=== PATIENT | female | born 1965 | race American Indian/Alaskan Native ===

== ENCOUNTER 2019-06-22 09:48 | Outpatient (CLI) | payer BC ==
--- NOTE | 2019-06-22 10:36 | Mammography Report ---
DIGITAL SCREENING MAMMOGRAM WITH CAD, 06/22/2019 INDICATION: Routine screening mammography. TECHNIQUE: Digital bilateral 2D mammography was obtained in the craniocaudal and mediolateral obliq ue projections. This examination was interpreted with the benefit of Computer-Aided Detection analysi s. COMPARISON: 06/17/2018 FINDINGS: Breast Density: The breasts are heterogeneously dense, which may obscure small masses. There is no evidence of dominant mass, suspicious calcifications or architectural distortion in eithe r breast. IMPRESSION: No mammographic evidence of malignancy. Follow up recommendation: Routine yearly BI-RADS Category 1: Negative. A "normal" or negative report should not discourage follow up or biopsy of a clinically significant f inding. A written summary of these findings will be mailed to the patient. The patient will be entered into a mammography reporting system which will generate a reminder letter for the patient's next appointmen t at the appropriate interval. The [employer] recommends yearly mammograms starting at age 40 and continuing as l sarahi as a woman is in good health. Breast MRI is recommended for women with an approximate 20-25% or greater lifetime risk of breast cancer, including women with a strong family history of breast or ova adeline cancer or who have been treated for Hodgkin's disease. Signer Name: Sergio Rivero MD Signed: 06/22/2019 10:32 AM Workstation Name: [id number]
== END 2019-06-22 09:49 | disposition home or self-care (01) ==
LOC: SPVWC 09:48
PROVIDERS: ATTEND Surgery
DX: Z12.31 Encounter for screening mammogram for malignant neoplasm of breast (principal)
CPT/HCPCS: 77067

== ENCOUNTER 2020-06-27 08:23 | Outpatient (CLI) | payer BC ==
--- NOTE | 2020-06-27 18:10 | Mammography Report ---
DIGITAL SCREENING MAMMOGRAM WITH CAD, 06/27/2020 INDICATION: Routine screening mammography. TECHNIQUE: Digital bilateral 2D mammography was obtained in the craniocaudal and mediolateral obliq ue projections. This examination was interpreted with the benefit of Computer-Aided Detection analysi s. COMPARISON: Prior mammograms 06/22/2019 and 06/17/2018 FINDINGS: Breast Density: There are scattered areas of fibroglandular density. There is no evidence of dominant mass, suspicious calcifications or architectural distortion in eithe r breast. There has been no significant change compared with the prior examinations. IMPRESSION: Follow up recommendation: Routine yearly BI-RADS Category 1: Negative. A "normal" or negative report should not discourage follow up or biopsy of a clinically significant f inding. A written summary of these findings will be mailed to the patient. The patient will be entered into a mammography reporting system which will generate a reminder letter for the patient's next appointmen t at the appropriate interval. The [employer] recommends yearly mammograms starting at age 40 and continuing as l sarahi as a woman is in good health. Breast MRI is recommended for women with an approximate 20-25% or greater lifetime risk of breast cancer, including women with a strong family history of breast or ova adeline cancer or who have been treated for Hodgkin's disease. Signer Name: Vijaya Matias MD Signed: 06/27/2020 6:05 PM Workstation Name: [email or web address]
== END 2020-06-27 08:24 | disposition home or self-care (01) ==
LOC: SPVWC 08:23
PROVIDERS: ATTEND Surgery
DX: Z12.31 Encounter for screening mammogram for malignant neoplasm of breast (principal); N64.89 Other specified disorders of breast
CPT/HCPCS: 77067

== ENCOUNTER 2020-07-25 15:54 | Outpatient (CLI) | payer BC ==
--- NOTE | 2020-07-25 17:26 | Ultrasound Report ---
ULTRASOUND BREAST BILATERAL COMPLETE, 07/25/2020 CLINICAL INFORMATION / INDICATION: DIFFUSE CYSTIC MASTOPATHY OF SERGEY BREASTS. TECHNIQUE: Complete sonographic evaluation of all 4 quadrants and retroareolar region was performed. COMPARISON: Bilateral mammography 06/27/20. FINDINGS: There is an 11 mm oval solid nodule in the left subareolar region. The lesion has mildly irregular ma rgins and demonstrates internal vascularity on Doppler exam. The lesion is parallel without posterior features. No mammographic correlate is seen. There are benign-appearing lymph nodes in each axilla. No other abnormality is seen. IMPRESSION: 11 mm solid nodule in the left subareolar region is moderately suspicious and biopsy is r ecommended. Follow up recommendation: Surgical consult BI-RADS Category 4: Suspicious for Malignancy. A normal or "negative" report should not preclude biopsy or follow-up of a clinically suspicious find ing. Signer Name: Asif Thomas MD Signed: 07/25/2020 5:21 PM Workstation Name: [id number]
== END 2020-07-25 15:55 | disposition home or self-care (01) ==
LOC: SPVWC 15:54
PROVIDERS: ATTEND Surgery
DX: N60.12 Diffuse cystic mastopathy of left breast (principal); N60.11 Diffuse cystic mastopathy of right breast

== ENCOUNTER 2020-08-15 07:58 | Outpatient (CLI) | payer BC ==
--- NOTE | 2020-08-15 12:15 | Ultrasound Report ---
ULTRASOUND-GUIDED LEFT BREAST VACUUM-ASSISTED BIOPSY INDICATION: Left breast nodule COMPARISON: Left breast ultrasound 07/25/2020 CONSENT: Procedure was discussed at length in advance with the patient. Possible risks and benefits w ere discussed including the possibility of bleeding. Postbiopsy care was discussed. Opportunity for q uestions was provided. Patient is not on anticoagulant therapy and reports no pertinent allergies. PROCEDURE: Timeout was performed. The area of concern in the retroareolar 2:00 position was targeted sonographically. Using aseptic technique and under local anesthesia, with real-time sonographic johan nce, the area of interest was biopsied. Multiple specimens were obtained with an Achieve 14-gauge bio psy device and sent to pathology for analysis. A metallic clip was placed at the end of the procedure . Site was secured and the patient was sent for post biopsy mammogram. Patient tolerated the procedur e well and left the department in good condition. IMPRESSION: Successful ultrasound-guided left breast biopsy Signer Name: Hoang Sotelo MD Signed: 08/15/2020 12:10 PM Workstation Name: [id number]
--- NOTE | 2020-08-15 12:24 | Mammography Report ---
DIGITAL DIAGNOSTIC MAMMOGRAM WITH CAD CONVENTIONAL, 08/15/2020 CLINICAL INFORMATION / INDICATION: Post left ultrasound guided biopsy TECHNIQUE: Digital left mammographic imaging was performed. This examination was interpreted with the benefit of Computer-aided Detection analysis. COMPARISON: Screening mammogram 06/22/2019 FINDINGS: Breast Density: The breasts are heterogeneously dense, which may obscure small masses. Biopsy clip is seen in the anterior central lateral left breast at the expected location of the sonog raphic abnormality. IMPRESSION: Appropriate clip placement Follow up recommendation: Per biopsy results Post biopsy imaging. A "normal" or negative report should not discourage follow up or biopsy of a clinically significant f inding. A written summary of these findings will be mailed to the patient. The patient will be entered into a mammography reporting system which will generate a reminder letter for the patient's next appointmen t at the appropriate interval. According to the [employer], yearly mammograms are recommended starting at age 40 and continuing as long as a woman is in good health. Breast MRI is recommended for women with an lois roximately 20-25% or greater lifetime risk of breast cancer, including women with a strong family his tory of breast or ovarian cancer and women who have been treated for Hodgkin's disease. Signer Name: Hoang Sotelo MD Signed: 08/15/2020 12:19 PM Workstation Name: [id number]
== END 2020-08-15 07:59 | disposition home or self-care (01) ==
LOC: SPVWC 07:58
PROVIDERS: ATTEND Surgery
DX: N63.21 Unspecified lump in the left breast, upper outer quadrant (principal); R92.8 Other abnormal and inconclusive findings on diagnostic imaging of breast
CPT/HCPCS: 88305

== ENCOUNTER 2020-10-11 07:49 | Day surgery (SDC) | payer BC ==
[2020-10-05 15:02] LABS: Hematocrit 31.9 % (30.3-42.9); Hemoglobin 11.6 gm/dl (10.1-14.3); Mean Corpuscular HGB Conc 36 % (30-34); Mean Corpuscular Volume 99 fl (79-97); Platelet Count 256 K/mm3 (140-440); Red Blood Count 3.23 M/mm3 (3.65-5.03); Red Cell Distribution Width 12.1 % (13.2-15.2)
[2020-10-05 15:19] LABS: Calcium 9.7 mg/dL (8.4-10.2)
[~2020-10-11 07:49] MED LIST: ACETAMINOPHEN 500 MG TAB PO SCH; CELECOXIB 200 MG CAP PO NR; GABAPENTIN 300 MG CAP PO NR; LACTATED RINGERS 1,000 ML IV SCH; MIDAZOLAM 2 MG/2 ML INJ IV NR; ceFAZolin/Water 2 GM/20 ML 2 GM/20 ML SYRINGE IV NR
[2020-10-11] MEDS ORDERED: LIDOCAINE (1%) 10 MG/1 ML VIAL 20 ML MDV ONE ×2 (08:12→10:17)
--- NOTE | 2020-10-11 08:49 | Anesthesia Consultation ---
Anesthesia Consult and Med Hx Date of service: 10/11/20 - Airway Anesthetic Teeth Evaluation: Good ROM Head & Neck: Adequate Mental/Hyoid Distance: Adequate Mallampati Class: Class II Intubation Access Assessment: Probably Good - Pulmonary Exam CTA: Yes - Cardiac Exam Cardiac Exam: RRR - Pre-Operative Health Status ASA Pre-Surgery Classification: ASA2 Proposed Anesthetic Plan: General - Pulmonary Hx Smoking: No Hx Respiratory Symptoms: No - Cardiovascular System Hx Hypertension: Yes (took amlodipine this morning) Hx Heart Attack/AMI: No - Central Nervous System CVA: No Hx Psychiatric Problems: Yes (anxiety) - Endocrine Hx Renal Disease: No Hx Liver Disease: No Hx Insulin Dependent Diabetes: No Hx Non-Insulin Dependent Diabetes: No Hx Thyroid Disease: No - Hematic Hx Anemia: Yes - Other Systems Hx Obesity: No - Additional Comments Anesthesia Medical History Comments: No hx anesthetic complications.
--- NOTE | 2020-10-11 08:59 | Anesthesia Day of Surgery ---
Anesthesia Day of Surgery - Day of Surgery Patient Examined: Yes Patient H&P Reviewed: Yes Patient is NPO: Yes
[2020-10-11] MEDS ORDERED: HYDROmorphone 1 MG/1 ML INJ IV PRN (09:00)
[2020-10-11] MEDS ORDERED: ONDANSETRON 4 MG/2 ML INJ IV PRN (09:00)
[2020-10-11] MEDS ORDERED: BUPIVACAINE/PF (0.25%) 2.5 MG/ML 10 ML VIAL INFILTRATI ONE ×2 (10:17→11:07)
[2020-10-11] MEDS ORDERED: fentaNYL 100 MCG/2 ML INJ ONE ×2 (10:23→10:45)
[2020-10-11] MEDS ORDERED: dexAMETHasone 20 MG/5 ML VIAL ONE (10:23)
[2020-10-11] MEDS ORDERED: PHENYLEPHRINE/NS 1,000 MCG/10 ML SYRINGE (OR USE) IV ONE (10:23)
[2020-10-11] MEDS ORDERED: ONDANSETRON 4 MG/2 ML INJ ONE (10:23)
[2020-10-11] MEDS ORDERED: SUCCINYLCHOLINE CHLORIDE 200 MG/10 ML INJ MDV ONE (10:23)
[2020-10-11] MEDS ORDERED: LIDOCAINE MPF (2%) 20 MG/1 ML VIAL 5 ML ONE (10:23)
[2020-10-11] MEDS ORDERED: NEOSTIGMINE 10MG/10 ML INJ MDV ONE (10:23)
[2020-10-11] MEDS ORDERED: GLYCOPYRROLATE 0.4 MG/2 ML INJ ONE (10:23)
[2020-10-11] MEDS ORDERED: propofoL 200 MG/20 ML VIAL IV ONE (10:24)
[2020-10-11] MEDS ORDERED: ePHEDrine SULFATE 50 MG/1 ML INJ ONE (10:47)
--- NOTE | 2020-10-11 10:58 | Mammography Report ---
MAMMOGRAPHIC GUIDED LEFT BREAST NEEDLE LOCALIZATION, 10/11/2020 CLINICAL INFORMATION / INDICATION: LT BREAST MASS. COMPARISON: 08/15/2020 PROCEDURE: Risks, benefits and indications to the procedure were discussed with the patient. The patient agreed to proceed with both verbal and written consent. A timeout procedure was performed with 2 patient shannon ntifiers. The breast was prepped with betadine in the usual sterile fashion. Approximately 5 cc of Lidocaine 1% was used for local anesthesia. Under direct digital mammographic guidance, a localization wire was p laced in satisfactory position with distal tip traversing the targeted lesion. Post-biopsy mammogram confirms satisfactory positioning of the localization wire. The wire was secured to the skin with a s terile dressing. The patient tolerated procedure without difficulty. No complications were encountered. IMPRESSION: 1. Satisfactory mammographic guided wire localization of the left breast. Signer Name: Brady Woodward Jr, MD Signed: 10/11/2020 10:53 AM Workstation Name: [id number]
[2020-10-11] MEDS ORDERED: WATER FOR IRRIG STERILE 1,500 ML BOTTLE IR ONE (11:06)
[2020-10-11] MEDS ORDERED: LIDOCAINE (1%) 10 MG/1 ML VIAL 20 ML MDV INFILTRATI ONE (11:07)
[2020-10-11] MEDS ORDERED: BACITRACIN ZINC OINT 28.4 GM TP ONE ×2 (11:18→11:29)
[2020-10-11] MEDS ORDERED: NITROGLYCERIN 2% OINT 1 GM TP ONE ×2 (11:20→11:31)
[2020-10-11] MEDS ORDERED: TRIAMCINOLONE 40 MG/1 ML INJ ONE (11:25)
[2020-10-11] MEDS ORDERED: TRIAMCINOLONE 40 MG/1 ML INJ IM ONE (11:30)
--- NOTE | 2020-10-11 12:04 | Operative Report ---
Operative Report Operative Report: October 11, 2020 Preoperative diagnosis: Left breast retroareolar mass/papilloma of the upper outer quadrant Postoperative diagnosis: Same Procedure: Left breast mass/papilloma needle localization excisional biopsy Surgeon: Geraldine Hernandez MD Director Medicaid: Carolina Romeo MD Anesthesia: General Findings: Left wire and clip present within radiograph specimen Complications: None EBL: Minimal (less than 25 cc) Disposition: PACU in good condition Indications for operative procedure: This is a 55 year old lady with recent abnormal left breast ultrasound findings of a probable intraductal mass of upper outer quadrant retroareolar of 11 mm. Left breast ultrasound guided needle core biopsy performed with findings of a papilloma and recommendations are to proceed with left breast mass excisional biopsy to rule out malignancy given breast cancer risk association. She wished to proceed with the above procedure. Procedure in detail: The patient was taken to radiology for wire placement for localization known area of concern. Patient was then taken to the operating room. Gen. anesthesia was administered. Left breast and axilla were prepped and draped in the normal sterile operative fashion. The wire was identified around 3:00 position SA. Timeout was performed. Ultrasound used as well to localize area of excision. Attention was then taken towards the left breast. A 3:00 periareolar breast incision was made with a 15 blade knife and dissection taken down to subcutaneous tissues. First began raising of the anterior flap with removal of the wire from the skin with the mass present immediateily posterior to the nipple with careful dissection performed to ensure vascuarlity, dissection was taken down posteriorly past the wire, followed by raising of the superior flap, inferior flap and medial flap with all flaps taken down posteriorly past the wire. The breast area of concern was appropriately removed posteriorly with the aid of the Bovie cautery. The wire was not encountered. Specimen was marked and then sent to pathology and radiology; radiograph specimen with wire and clip present. Breast cavity was irrigated and hemostasis was obtained. Breast cavity was anesthesized wtih 1% lidocained mixed with quarter percent marcaine withou epinephrine. The posterior deep breast tissues were approximated and closed using interrupted 3-0 Vicryl. The subcutaneous tissues were approximated and closed using interrupted 3-0 Vicryl followed by closing of the skin with a running 4-0 Monocryl and skin affix. The patient tolerated surgery very well and she was awaken from anesthesia without any complication and transported to PACU in good condition.
--- NOTE | 2020-10-11 12:07 | Short Stay Summary ---
Short Stay Documentation Date of service: 10/11/20 - History H&P: obtained from office - Allergies and Medications Current Medications: Allergies morphine Allergy (Verified 10/02/20 16:10) Itching Home Medications Medication Instructions Recorded Confirmed Last Taken Type ALPRAZolam [Xanax TAB] 0.25 mg PO BID PRN 10/06/20 10/06/20 Unknown History Ascorbic Acid [Vitamin C] 500 mg PO DAILY 10/06/20 10/06/20 Unknown History Benazepril HCl [Lotensin] 20 mg PO DAILY 10/06/20 10/06/20 Unknown History Cetirizine HCl [ZyrTEC 10mg cap] 10 mg PO DAILY 10/06/20 10/06/20 Unknown History Ergocalciferol(Vitamin D2)(Nf) 1,000 unit PO DAILY 10/06/20 10/06/20 Unknown History [Vitamin D (Nf)] Fluticasone [Flonase] 2 spray NS QDAY PRN 10/06/20 10/06/20 Unknown History Folic Acid [Folvite] 1 mg PO QDAY 10/06/20 10/06/20 Unknown History Iron [Iron 18 MG TAB] 54 mg PO QDAY 10/06/20 10/06/20 Unknown History Potassium Citrate [Potassium 2 tab PO BID 10/06/20 10/06/20 Unknown History Citrate ER] Vitamin B Complex [B Complex] 1 each PO DAILY 10/06/20 10/06/20 Unknown History amLODIPine [Norvasc] 10 mg PO DAILY 10/06/20 10/06/20 Unknown History hydroCHLOROthiazide [HCTZ] 25 mg PO QDAY 10/06/20 10/06/20 Unknown History oxyCODONE /ACETAMINOPHEN [Percocet 1 tab PO Q6HR PRN #12 tablet 10/11/20 Unknown Rx 5/325] Active Medications Acetaminophen (Acetaminophen 500 Mg Tab) 1,000 mg PO PREOP MIKAEL Stop: 10/11/20 21:00 Celecoxib (Celecoxib 200 Mg Cap) 200 mg PO PREOP NR Stop: 10/11/20 21:00 Gabapentin (Gabapentin 300 Mg Cap) 300 mg PO PREOP NR Stop: 10/11/20 21:00 Hydromorphone HCl (Hydromorphone 1 Mg/1 Ml Inj) 0.5 mg IV Q10MIN PRN PRN Reason: Pain , Severe (7-10) Stop: 10/11/20 17:00 Cefazolin Sodium (Ancef/Sterile Water 2 Gm/20 Ml) 2 gm in 20 mls @ 80 mls/hr IV PREOP NR; Protocol Stop: 10/11/20 21:00 Lactated Ringer's (Lactated Ringers) 1,000 mls @ 100 mls/hr IV DIRECT MIKAEL Stop: 10/11/20 23:59 Midazolam HCl (Midazolam 2 Mg/2 Ml Inj) 2 mg IV PREOP NR Stop: 10/11/20 21:00 Ondansetron HCl (Ondansetron 4 Mg/2 Ml Inj) 4 mg IV ONCE PRN PRN Reason: Nausea And Vomiting Stop: 10/11/20 18:00 - Brief post op/procedure progress note Date of procedure: 10/11/20 Pre-op diagnosis: Left breast papilloma upper outer quadrant Post-op diagnosis: same Procedure: Left breast mass needle localization excisional biopsy Anesthesia: GETA Findings: Left wire and clip present Surgeon: MARY LOCKWOOD Estimated blood loss: minimal Pathology: list (left breast mass) Specimen disposition: to lab Condition: stable - Disposition Condition at discharge: Good Disposition: DC-01 TO HOME OR SELFCARE Short Stay Discharge Plan Activity: other (no heavy lifting) Diet: regular Wound: keep clean and dry (may shower in 48 hours; no baths; apply bacitracin twice a day to incision) Follow up with: MARY LOCKWOOD MD [Staff Physician] - 7 Days Prescriptions: oxyCODONE /ACETAMINOPHEN [Percocet 5/325] 1 tab PO Q6HR PRN #12 tablet PRN Reason: Pain
--- NOTE | 2020-10-11 14:15 | Post Anesthesia Evaluation ---
- Post Anesthesia Evaluation Patient Participated: Yes Airway Patent: Yes Stable Respiratory Function: Yes Nausea/Vomiting: Yes (improved with antiemetic) Temp > 96.8F: Yes Pain Manageable: Yes Adequeate Hydration: Yes Anesthesia Complications: No
--- NOTE | 2020-10-11 15:39 | Mammography Report ---
LEFT BREAST SPECIMEN RADIOGRAPH, 10/11/2020 INDICATION: Left breast target lesion: . COMPARISON: FINDINGS: The previously localized left retroareolar lesion containing a U clip is present in its entirety in t he submitted specimen. The localization wire is present. IMPRESSION: 1. Radiographic evidence of satisfactory excision of the left breast lesion. Please correlate margins with the formal pathology report. Signer Name: Brady Woodward Jr, MD Signed: 10/11/2020 3:35 PM Workstation Name: [id number]
[2020-10-11 22:22] VITALS: BP 120/58
== END 2020-10-11 07:50 | disposition home or self-care (01) ==
LOC: OR 07:49
PROVIDERS: ATTEND Surgery
DX: D24.2 Benign neoplasm of left breast (principal); I10 Essential (primary) hypertension; K21.9 Gastro-esophageal reflux disease without esophagitis; D64.9 Anemia, unspecified; Z88.5 Allergy status to narcotic agent; Z79.899 Other long term (current) drug therapy; Z86.19 Personal history of other infectious and parasitic diseases; Z98.890 Other specified postprocedural states; Z87.442 Personal history of urinary calculi; Z80.8 Family history of malignant neoplasm of other organs or systems; Z98.51 Tubal ligation status
CPT/HCPCS: 19125; 19281; 36415; 76098; 80048; 85027; 88307; J0330; J0690; J1100; J2250; J2370; J2405; J2704; J2710; J3010; J3301; J7120; U0003

== ENCOUNTER 2021-02-27 08:11 | Outpatient (CLI) | payer BC ==
--- NOTE | 2021-03-08 13:33 | Mammography Report ---
DIGITAL DIAGNOSTIC MAMMOGRAM WITH CAD WITH TOMOSYNTHESIS, 02/27/2021 CLINICAL INFORMATION / INDICATION: Follow-up postbiopsy. ABNORMAL MAMMO R92.8 TECHNIQUE: Digital left mammographic imaging was performed. This examination was interpreted with the benefit of Computer-aided Detection analysis. COMPARISON: 08/15/2020 and 10/11/2020. FINDINGS: Breast Density: There are scattered areas of fibroglandular density. No dominant mass or suspicious calcifications in the left breast. There is new scarring in the upper outer quadrant. The biopsy clip has been removed. No other change is seen. IMPRESSION: No mammographic evidence of malignancy. Follow up recommendation: Back to schedule. BI-RADS Category 2: Benign. A "normal" or negative report should not discourage follow up or biopsy of a clinically significant f inding. A written summary of these findings will be mailed to the patient. The patient will be entered into a mammography reporting system which will generate a reminder letter for the patient's next appointmen t at the appropriate interval. According to the [employer], yearly mammograms are recommended starting at age 40 and continuing as long as a woman is in good health. Breast MRI is recommended for women with an lois roximately 20-25% or greater lifetime risk of breast cancer, including women with a strong family his tory of breast or ovarian cancer and women who have been treated for Hodgkin's disease. Signer Name: Asif Thomas MD Signed: 02/27/2021 9:13 AM Workstation Name: [id number]
== END 2021-02-27 08:12 | disposition home or self-care (01) ==
LOC: SPVWC 08:11
PROVIDERS: ATTEND Surgery
DX: R92.8 Other abnormal and inconclusive findings on diagnostic imaging of breast (principal)
CPT/HCPCS: 77065; G0279